=== PATIENT | female | born 1970 | race Caucasian/White ===

== ENCOUNTER 2020-04-29 10:39 | Emergency (ER) | payer OTHER, SELFPAY ==
--- NOTE | ~2020-04-29 | CT_ITS ---
EXAMINATION: CTA chest PE protocol DATE: 04/29/2020 14:21 INDICATION: Chest tightness. TECHNIQUE: Computed tomography angiography (CTA) of the chest was performed with 100 mL Omnipaque-350 intravenous contrast timed to evaluate the pulmonary arteries. Coronal maximum intensity projection 3D-reconstructions were created by the technologist. Automated exposure control and iterative reconst ruction technique were employed. The dose-length product was 551.50 mGy-cm. COMPARISON: Chest 2 views 04/29/2020 FINDINGS: There are small pleural effusions. There is minimal dependent atelectasis bilaterally. The heart size is normal. There are coronary artery calcifications. There is a small pericardial effusion . There is no pulmonary embolus. There are changes of recent median sternotomy. There is mild thoraci c spondylosis. IMPRESSION: 1. No pulmonary embolus. 2. Small pleural effusions. 3. Small pericardial effusion. Reviewed, dictated and finalized at location B. STRY HUNTER
--- NOTE | ~2020-04-29 | XR_ITS ---
EXAMINATION: XR chest 2V DATE: 04/29/2020 11:21 INDICATION: Chest tightness TECHNIQUE: PA and lateral views of the chest were obtained. COMPARISON: Chest radiograph dated 05/24/2016 FINDINGS: The lungs remain clear with no focal airspace opacities, pulmonary edema, pleural effusion or pneumot horax. The cardiomediastinal silhouette is normal. Median sternotomy wires and mediastinal surgical c lips are seen, likely from prior coronary artery bypass grafting. Visualized bones and soft tissues a re unremarkable. IMPRESSION: 1. No acute cardiopulmonary disease. Reviewed, dictated and finalized at location A. L HANDLER
--- NOTE | 2020-04-29 10:46 | ECG_ITS ---
Measurements Intervals [place] Rate: 81 P: 58 [place]: 169 QRS: 57 QRSD: 83 T: 40 QT: 350 QTc: 407 Interpretive Statements SINUS RHYTHM ANTEROSEPTAL INFARCT, AGE INDETERMINATE BORDERLINE T WAVE ABNORMALITY- ANT/INF LEADS ABNORMAL ECG Electronically Signed On 04-29-2020 11:15:23 [employer] by Luis Daniel Llanos D.O.
[2020-04-29 10:57] VITALS: BP 132/64; PULSE 84; RESP 18; TEMP 36.4; O2SAT 96
[2020-04-29 11:22] LABS: Basophils Percent Auto 0.3 % (0.2-1.2); Eosinophils Absolute Auto 0.1 K/mm3 (0-0.3); Eosinophils Percent Auto 1.1 % (0-4.4); Hematocrit 37.6 % (37.0-47.0); Hemoglobin 12.3 g/dL (12.0-15.0); Immature Granulocyte Absolute 0.03 K/mm3 (0.00-0.031); Immature Granulocyte Percent A 0.3 % (0-0.5); Lymphocytes Absolute Auto 1.77 K/mm3 (0.9-3.2); Lymphocytes Percent Auto 16.9 % (18.3-44.2); Mean Corpuscular HGB Conc 32.7 g/dl (32-36); Mean Corpuscular Hemoglobin 30.9 pg (26-34); Mean Corpuscular Volume 94.5 fl (80-100); Mean Platelet Volume 8.9 fl (7.4-10.4); Monocytes Absolute Auto 0.8 K/mm3 (0.1-0.6); Monocytes Percent Auto 7.2 % (2.6-8.5); Neutrophils Absolute Auto 7.8 K/mm3 (1.3-6.7); Neutrophils Percent Auto 74.2 % (45.5-73.1); Platelet Count Result 329 k/mm3 (150-375); Red Blood Count 3.98 M/mm3 (4.2-5.4); White Blood Count 10.5 K/mm3 (4.5-10.0)
[2020-04-29 11:32] LABS: Anion Gap 3 mmol/L (8-16); Blood Urea Nitrogen 11 mg/dL (7-17); Calcium 9.1 mg/dL (8.4-10.2); Carbon Dioxide 28 mmol/L (22-30); Chloride 105 mmol/L (98-107); Estimated CRCL calculation 97 ml/min; Estimated Glomerular Filt Rate > 60; Glucose 134 mg/dL (65-105); INR 1.1; Potassium 4.2 mmol/L (3.4-5.0); Prothrombin Time 14.5 Seconds (11.1-14.7); Sodium 136 mmol/L (137-145)
[2020-04-29 11:33] LABS: Partial Thromboplastin Time 37.2 SECONDS (22.3-36.8)
[2020-04-29 11:43] LABS: Troponin I < 0.012 ng/mL (0.000-0.034)
[2020-04-29 14:04] VITALS: BP 106/61; PULSE 71; RESP 16; O2SAT 100
[2020-04-29 14:33] LABS: Troponin I < 0.012 ng/mL (0.000-0.034)
--- NOTE | 2020-04-29 15:02 | ED.CHESTPAIN ---
HPI - Chest Pain General Chief Complaint: Chest Pain Stated Complaint: Chest Heavy Time Seen by Provider: 04/29/20 11:49 Source: patient Mode of arrival: ambulatory Limitations: no limitations History of Present Illness HPI narrative: Patient is a 50-year-old female who presents to emergency department for evaluation of pleuritic chest discomfort that occurs with taking a deep breath for the last 2 days patient notes that she a week ago and had upper respiratory symptoms to include cough which resolved patient on arrival notes no discomfort and that it only occurs with breathing as noted patient denies current URI symptoms dyspnea and is otherwise in the room in no distress. Patient had recent aortic aneurysm repair and is followed by [facility] physicians was medically cleared by her surgeon and copy coordinator surgery was in February. Patient as noted on arrival in no distress Related Data Allergies Allergy/AdvReac Type Severity Reaction Status Date / Time clindamycin Allergy Severe Anaphylactic Verified 05/28/16 17:32 Shock codeine Allergy Unknown HALLUCINATI Verified 05/28/16 17:32 ONS Review of Systems Review of Systems: All systems reviewed & are unremarkable except as noted in HPI and below PMFSH Past Medical History Medical History Obesity Surgical History Surgical History H/O aortic aneurysm repair Social History Social History (Updated 04/29/20 @ 15:05 by Kit Dudley PA-C) Smoking status: Never smoker Exam Narrative: Exam Narrative: GENERAL: Well-appearing, obese, and in no acute distress. HEAD: Normocephalic, atraumatic. EYES: PERRLA and EOMI. ENT: Nares clear, no rhinorrhea or epistaxis. Mucous membranes moist. NECK: Supple. No adenopathy or masses. No carotid bruits or JVD CHEST: Clear to auscultation. No respiratory distress. No wheezes rales or rhonchi HEART: Regular rate and rhythm. No murmur heard. Normal peripheral pulses. ABDOMEN: Soft, nontender, nondistended EXTREMITIES: Normal range of motion. No edema. SKIN: Warm, dry, no rash. NEURO: No focal deficits. Alert and oriented x3. PSYCH: Normal mood and affect. Course Course Emergency Course: Patient presented with pleuritic chest pain of 2 days duration in the room in no distress upon arrival normal vital signs ABCs intact and stable patient denies sick contacts or exposures patient notes pleuritic chest pain as stated has not taken anything for her symptoms denies radiation of pain or discomfort pain only occurs with inspiration no pneumonia seen on exam remainder of evaluation unremarkable patient will follow with her primary care and job training specialist as instructed and was given reasons to return Vital Signs Vital signs: Vital Signs Temperature 97.5 F L 04/29/20 10:57 Pulse Rate 84 04/29/20 10:57 Respiratory Rate 18 04/29/20 10:57 Blood Pressure 132/64 04/29/20 10:57 Pulse Oximetry 96 04/29/20 10:57 Temperature 97.5 F L 04/29/20 10:57 Pulse Rate 71 04/29/20 14:04 Respiratory Rate 16 04/29/20 14:04 Blood Pressure 106/61 04/29/20 14:04 Pulse Oximetry 100 04/29/20 14:04 MDM - Chest Pain MDM Narrative Medical decision making narrative: Patient with pleuritic chest pain normal vital signs no pneumonia or high risk changes in the blood work or imaging ruled out pulmonary embolus no elevation in her cardiac enzymes x2 normal EKG felt appropriate for outpatient reevaluation by her specialist and will be discharged home with reasons to return Lab Data Result diagrams: 04/29/20 11:09 04/29/20 11:09 Labs: Lab Results 04/29/20 04/29/20 04/29/20 Range/Units 11:09 11:09 11:09 WBC 10.5 H (4.5-10.0) K/mm3 RBC 3.98 L (4.2-5.4) M/mm3 Hgb 12.3 (12.0-15.0) g/dL Hct 37.6 (37.0-47.0) % MCV 94.5 (80-100) fl MCH 30.9 (26-34) p
[2020-04-29 15:59] VITALS: BP 117/63; PULSE 81; RESP 20; O2SAT 100
== END 2020-04-29 16:01 | disposition home or self-care (01) ==
PROVIDERS: Emergency Provider Emergency Medicine; Family Provider Family Medicine Sports Medicine; PCP Family Medicine Sports Medicine
DX: R07.81 Pleurodynia (principal); E66.9 Obesity, unspecified; Z68.29 Body mass index [BMI] 29.0-29.9, adult; R94.31 Abnormal electrocardiogram [ECG] [EKG]
CPT/HCPCS: 36415; 71046; 71275; 80048; 81025; 84484; 85025; 85610; 85730; 93005; 99284; Q9967

== ENCOUNTER 2023-09-02 12:06 | Emergency (ER) | payer OTHER, SELFPAY ==
--- NOTE | ~2023-09-02 | XR_ITS ---
EXAMINATION: XR finger 3rd LT min 2V DATE: 09/02/2023 13:01 INDICATION: Left hand third digit injury. TECHNIQUE: 4 views of left hand third digit were obtained. COMPARISON: None. FINDINGS: Bone alignment is normal. No fracture. 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 IMPRESSION: 1. No fracture. Reviewed, dictated and finalized at location E. IMPRESSION: 1. No fracture.
[2023-09-02 12:22] VITALS: BP 134/65; PULSE 83; RESP 18; TEMP 36.4; O2SAT 99
--- NOTE | 2023-09-02 13:22 | ED.WOUNDLAC ---
HPI - Wound/Laceration General Chief Complaint: Wound/Laceration Stated Complaint: lt hand/middle finger laceration Time Seen by Provider: 09/02/23 13:04 Source: patient and RN notes reviewed Mode of arrival: ambulatory Limitations: no limitations History of Present Illness HPI narrative: Patient presents today with an injury to her left 3rd finger. Approximately 1.5 hours prior to exam, patient had her finger smashed in between a wooden log and a log splitter. She has also sustained a laceration to the finger. She is currently pain-free, but states her finger is numb. No treatment prior to arrival. She is up-to-date on her tetanus vaccine. Related Data Home Medications Medication Instructions Recorded Confirmed citalopram 40 mg tablet mg 09/02/23 folic acid 1 mg tablet 09/02/23 montelukast 10 mg tablet mg 09/02/23 Allergies Allergy/AdvReac Type Severity Reaction Status Date / Time clindamycin Allergy Severe Anaphylactic Verified 09/02/23 12:41 Shock codeine Allergy Unknown HALLUCINATI Verified 09/02/23 12:41 ONS bacitracin Allergy Rash Verified 09/02/23 12:41 [From Neosporin ([id number])] neomycin Allergy Rash Verified 09/02/23 12:41 [From Neosporin ([id number])] polymyxin B Allergy Rash Verified 09/02/23 12:41 [From Neosporin ([id number])] Review of Systems Review of Systems: CONSTITUTIONAL: Denies body aches, fever, chills, or sweats. EYES: Denies visual changes, redness, or discharge. ENT: Denies rhinorrhea, congestion, sore throat, or otalgia. CARDIOVASCULAR: Denies chest pain, palpitations, or edema. RESPIRATORY: Denies cough or dyspnea. GASTROINTESTINAL: Denies abdominal pain, nausea, vomiting, or diarrhea. GENITOURINARY: Denies dysuria or hematuria. SKIN: Denies rash, itching, or wounds. MUSCULOSKELETAL: Left 3rd finger injury NEUROLOGIC: Denies headache, numbness, tingling, or weakness. PSYCH: Denies depression or anxiety. PMFSH Past Medical History Medical History Obesity Surgical History Surgical History H/O aortic aneurysm repair Social History Social History Smoking status: Never smoker Comments At time of signature, I have reviewed and agree with nursing past medical, surgical, social and family history unless otherwise noted. Please see nursing chart for further information. There is no relevant family history pertinent to the presenting complaint Exam Narrative: GENERAL: Well-appearing, well-nourished, and in no acute distress. HEAD: Normocephalic, atraumatic. EYES: EOMI. No redness or drainage. Conjunctivae normal. ENT: Mucous membranes pink and moist. NECK: Normal AROM. CHEST: No respiratory distress. EXTREMITIES: Left 3rd finger: Mildly edematous. 1 cm partial-thickness linear laceration to the dorsum of the D IP. Distal sensation intact. Capillary refill normal. Full range of motion against resistance. SKIN: Warm, dry, no rash. Capillary refill normal. Normal skin turgor. NEURO: No focal deficits. Alert and oriented x3. Gait steady. PSYCH: Normal affect. No signs of depression or anxiety. Course Course Level of Care: Express Care Visit Vital Signs Vital signs: Vital Signs Temperature 97.6 F 09/02/23 12:22 Pulse Rate 83 09/02/23 12:22 Respiratory Rate 18 09/02/23 12:22 Blood Pressure 134/65 09/02/23 12:22 Pulse Oximetry 99 09/02/23 12:22 Oxygen Delivery Room Air 09/02/23 12:22 Temperature 97.6 F 09/02/23 12:22 Pulse Rate 83 09/02/23 12:22 Respiratory Rate 18 09/02/23 12:22 Blood Pressure 134/65 09/02/23 12:22 Pulse Oximetry 99 09/02/23 12:22 Oxygen Delivery Room Air 09/02/23 12:22 Reviewed Procedures Laceration Laceration 1: Date: 09/02/23 Ti
== END 2023-09-02 13:37 | disposition home or self-care (01) ==
PROVIDERS: Emergency Provider Nurse Practitioner; PCP Family Medicine Sports Medicine
DX: S67.193A Crushing injury of left middle finger, initial encounter (principal); W31.89XA Contact with other specified machinery, initial encounter; S61.213A Laceration without foreign body of left middle finger without damage to nail, initial encounter; E66.9 Obesity, unspecified; Z68.35 Body mass index [BMI] 35.0-35.9, adult
CPT/HCPCS: 12001; 73140; 99213; G0463